=== PATIENT | male | born 1950 | race Caucasian/White ===

== ENCOUNTER → 2020-03-04 | Outpatient (CLI) | payer MEDICARE ==
[~2020-03-04] MED LIST: SIMV20TA2; TRAM100T; ULTRTA
== END ==
LOC: M LABSMTC 10:56
PROVIDERS: ATTEND Orthopaedic Surgery
DX: Z01.812 Encounter for preprocedural laboratory examination (principal); Z20.828 Contact with and (suspected) exposure to other viral communicable diseases

== ENCOUNTER → 2020-03-23 | Outpatient (CLI) | payer MEDICARE ==
--- NOTE | 2020-03-23 08:35 | REP ---
INDICATION: HEADACHE. COMPARISON: NONE. TECHNIQUE: Helical scanning is acquired and 3 mm axial images are re-formatted. Coronal MPR images are generated and reviewed. FINDINGS: Preliminary digital hand ornament maker radiographs demonstrate that the patient is edentulous. There is metallic mandibular bridge work related to dentures. There is a mucous retention cyst in the lateral aspect of the left maxillary sinus. Mild 1-2 mm mucosal thickening is seen in the maxillary sinuses bilaterally. The ethmoid air cells are clear. Frontal sinuses are not developed. Sphenoid air cells are clear. Mastoid aeration is normal and symmetric. No bony destructive lesion is appreciated. No intraorbital mass is seen. There is minimal generalized volume loss intracranially. The visualized intracranial structures are otherwise unremarkable. The bony nasal septum is essentially midline. Nasal turbinates soft tissues are symmetric. There is mucosal thickening obscuring and occluding the ostiomeatal complex on the left. The right OMC is patent. 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 <Electronically signed by Chaz Arango > 03/23/20 [id number]
== END ==
LOC: M RAD 08:00
PROVIDERS: ATTEND Specialist
DX: J34.1 Cyst and mucocele of nose and nasal sinus (principal)